=== PATIENT | male | born 1980 | race Two or more races ===

== ENCOUNTER 2017-08-30 22:53 | Inpatient (IN) | payer OTHER ==
[~2017-08-30] VITALS: Ht 175.3 cm; Wt 76.0 kg
[2017-08-30 23:11] VITALS: Ht 175.3 cm; Wt 76.0 kg
[2017-08-31 01:26] VITALS: TEMP 98.6
--- NOTE | 2017-08-31 01:48 | RADRPT ---
PROCEDURE: CHEST - 1 VIEW CLINICAL INDICATION: 37-year-old male with chest pain. TECHNIQUE: A single frontal AP upright portable view of the chest was performed. The images were reviewed on a PACS workstation. COMPARISON: None. FINDINGS: The cardiomediastinal silhouette has a normal appearance. There is no evidence for an infiltrate. There is no evidence for congestive heart failure. There is no evidence for pneumothorax. The osseou s structures are intact. IMPRESSION: No evidence for active cardiopulmonary disease. .Lyle Dacosta MD, MD Date Time Electronically viewed and signed by .Lyle Dacosta MD, on 08/31/2017 01:47 .M/
[2017-08-31 02:29] LABS: BASOPHIL # 0.1 10^3/ul (0.0-0.1); BASOPHILS % 0.6 % (0.0-2.0); EOSINOPHILS # 0.1 10^3/ul (0.0-0.5); EOSINOPHILS % 1.3 % (0.0-7.0); HEMOGLOBIN 13.8 g/dl (14.0-18.0); LYMPHOCYTES % 29.8 % (15.0-51.0); MEAN CORPUSCULAR HEMOGLOBIN 28.3 pg (29.0-33.0); MEAN CORPUSCULAR HGB CONC 33.7 g/dl (32.0-37.0); MEAN CORPUSCULAR VOLUME 84.2 fl (82.0-101.0); MEAN PLATELET VOLUME 10.5 fl (7.4-10.4); NEUTROPHIL # 5.8 10^3/ul (1.6-7.5); NEUTROPHILS % 57.8 % (39.0-77.0); PLATELET COUNT 360 10^3/UL (140-415); RED BLOOD COUNT 4.87 10^6/ul (4.70-6.10); RED CELL DISTRIBUTION WIDTH 12.3 % (11.5-14.5)
[2017-08-31 02:39] LABS: ALBUMIN 4.3 g/dl (3.3-4.9); ALBUMIN/GLOBULIN RATIO 1.53; BILIRUBIN,INDIRECT 0.4 mg/dl (0-1.1); BILIRUBIN,TOTAL 0.4 mg/dl (0.2-1.3); CREATINE KINASE 262 IU/L (23-200); CREATININE 1.04 mg/dl (0.61-1.24); POTASSIUM 3.9 mmol/L (3.5-5.1); TOTAL PROTEIN 7.1 g/dl (6.1-8.1)
[2017-08-31 02:54] LABS: CK-MB 4.13 ng/ml (0.0-2.4); TROPONIN-I < 0.012 ng/ml (0.00-0.12)
--- NOTE | 2017-08-31 04:48 | ERD ---
ER Documentation Chief Complaint Chief Complaint CP for 2 weeks, last night L arm and shoulder hurting HPI This is a 37-year-old male sent chest pain on and off for the past 2 weeks. In the past few hours he developed left arm and left shoulder pain radiating from his chest. Pain is mild to moderate intensity. No fevers no chills. Also complaining of palpitations. No other current issues. ROS All systems reviewed and are negative except as per history of present illness. Allergies Allergies: Coded Allergies: No Known Allergy (Unverified , 08/30/17) PMhx/Soc Medical and Surgical Hx: pt denies Medical Hx, pt denies Surgical Hx History of Surgery: No Anesthesia Reaction: No Hx Neurological Disorder: No Hx Respiratory Disorders: No Hx Cardiac Disorders: No Hx Psychiatric Problems: No Hx Miscellaneous Medical Probl: No Hx Alcohol Use: No Hx Substance Use: No Hx Tobacco Use: No Smoking Status: Never smoker Physical Exam Vitals Vital Signs Date Time Temp Pulse Resp B/P Pulse Ox O2 Delivery O2 Flow Rate FiO2 08/31/17 01:26 98.6 65 12 137/89 98 Room Air 08/30/17 23:11 97.5 71 16 132/84 99 Physical Exam Const: [] Head: Atraumatic Eyes: Normal Conjunctiva ENT: Normal External Ears, Nose and Mouth. Neck: Full range of motion..~ No meningismus. Resp: Clear to auscultation bilaterally Cardio: Regular rate and rhythm, no murmurs Abd: Soft, non tender, non distended. Normal bowel sounds Skin: No petechiae or rashes Back: No midline or flank tenderness Ext: No cyanosis, or edema Neur: Awake and alert Psych: Normal Mood and Affect Result Diagram: 08/31/177 08/31/17 0127 Results 24 hrs Laboratory Tests Test 08/31/17 01:27 White Blood Count 10.010^3/ul Red Blood Count 4.8710^6/ul Hemoglobin 13.8g/dl Hematocrit 41.0% Mean Corpuscular Volume 84.2fl Mean Corpuscular Hemoglobin 28.3pg Mean Corpuscular Hemoglobin Concent 33.7g/dl Red Cell Distribution Width 12.3% Platelet Count 84348^3/UL Mean Platelet Volume 10.5fl Neutrophils % 57.8% Lymphocytes % 29.8% Monocytes % 10.0% Eosinophils % 1.3% Basophils % 0.6% Nucleated Red Blood Cells % 0.0/100WBC Neutrophils # 5.810^3/ul Lymphocytes # 3.010^3/ul Monocytes # 1.010^3/ul Eosinophils # 0.110^3/ul Basophils # 0.110^3/ul Nucleated Red Blood Cells # 0.010^3/ul Sodium Level 142mmol/L Potassium Level 3.9mmol/L Chloride Level 102mmol/L Carbon Dioxide Level 30mmol/L Anion Gap 14 Blood Urea Nitrogen 16mg/dl Creatinine 1.04mg/dl Glucose Level 87mg/dl Calcium Level 10.0mg/dl Total Bilirubin 0.4mg/dl Direct Bilirubin 0.00mg/dl Indirect Bilirubin 0.4mg/dl Aspartate Amino Transf (AST/SGOT) 29IU/L Alanine Aminotransferase (ALT/SGPT) 45IU/L Alkaline Phosphatase 54IU/L Creatine Kinase 262IU/L Creatine Kinase Index 1.6 Creatinine Kinase MB (Mass) 4.13ng/ml Troponin I < 0.012ng/ml B-Type Natriuretic Peptide 44PG/ML Total Protein 7.1g/dl Albumin 4.3g/dl Globulin 2.80g/dl Albumin/Globulin Ratio 1.53 Procedures/MDM EKG: Rate/Rhythm: [Normal Sinus Rhythm] QRS, ST, T-waves: [No changes consistent w/ acute ischemia] Impression: [No evidence of ischemia or arrhythmia] Chest X-ray 1V Interpreted by me: Soft Tissue: No acute abnormalities Bones: No acute abnormalities Mediastinum/Cardiac Silhouette/Lungs: [No acute abnormalities] Patient's symptoms are concerning for cardiac cause will require inpatient workup and continuous monitoring. Further w/u for ischemia, arrhythmia, PE or dissection will be deferred to the inpatient team. Accepting Care Team: Current data and ongoing care discussed. Time: 5 AM Primary Provider: Dr. Peters Consulting: [XOXOXO] Outstanding Data: none Departure Diagnosis: Primary Impression: Chest pain Chest pain type: chest pain due to myocardial ischemia Ischemic chest pain type: unspecified angina pectoris type Qualified Code: I20.9 - Chest pain due to myocardial ischemia, unspecified ischemic chest pain type Condition: Serious LAZARO HOLGUINAnali Aug 31, 2017 04:48
[2017-08-31] MEDS ORDERED: BISACODYL (EC) 5 MG TAB PO PRN (07:00)
[2017-08-31] MEDS ORDERED: ACETAMINOPHEN 325 MG TAB PO PRN (07:00)
[2017-08-31] MEDS ORDERED: NACL 0.9% 3 ML SYG IV SCH (07:00)
[2017-08-31] MEDS ORDERED: ONDANSETRON 4 MG INJ IV PRN (07:00)
[2017-08-31] MEDS ORDERED: NITROGLYCERIN (SL) 0.4 MG TAB SL PRN (07:00)
[2017-08-31] MEDS ORDERED: SOD CHLORIDE 0.9% 1,000 ML IV SCH (07:00)
[2017-08-31] MEDS ORDERED: DOCUSATE SODIUM 100 MG CAP PO PRN (07:00)
[2017-08-31 08:00] VITALS: BP 138/82; PULSE 73; RESP 18
[2017-08-31 08:19] LABS: BARBITURATES Negative (NEGATIVE); BENZODIAZEPINES Negative (NEGATIVE); CANNABINOIDS Negative (NEGATIVE); COCAINE Negative (NEGATIVE); OPIATES Negative (NEGATIVE)
[2017-08-31 08:24] LABS: BASOPHILS % 0.5 % (0.0-2.0); EOSINOPHILS # 0.1 10^3/ul (0.0-0.5); EOSINOPHILS % 1.5 % (0.0-7.0); HEMATOCRIT 42.1 % (42.0-52.0); HEMOGLOBIN 14.1 g/dl (14.0-18.0); LYMPHOCYTES # 1.9 10^3/ul (0.8-2.9); LYMPHOCYTES % 24.3 % (15.0-51.0); MEAN CORPUSCULAR HEMOGLOBIN 28.3 pg (29.0-33.0); MEAN CORPUSCULAR HGB CONC 33.5 g/dl (32.0-37.0); MEAN CORPUSCULAR VOLUME 84.5 fl (82.0-101.0); MONOCYTE # 0.8 10^3/ul (0.3-0.9); MONOCYTES % 9.9 % (0.0-11.0); NEUTROPHILS % 63.3 % (39.0-77.0); PLATELET COUNT 309 10^3/UL (140-415); RED BLOOD COUNT 4.98 10^6/ul (4.70-6.10); RED CELL DISTRIBUTION WIDTH 12.6 % (11.5-14.5)
[2017-08-31 08:46] LABS: ALBUMIN/GLOBULIN RATIO 1.42; BILIRUBIN,INDIRECT 0.8 mg/dl (0-1.1); BILIRUBIN,TOTAL 0.8 mg/dl (0.2-1.3); CALCIUM 9.3 mg/dl (8.4-10.2); CHOL/HDL RATIO 3.9 RATIO; CREATININE 1.01 mg/dl (0.61-1.24); TOTAL PROTEIN 6.8 g/dl (6.1-8.1)
[2017-08-31 09:15] LABS: THYROID STIMULATING HORMONE 3.53 MIU/L (0.465-4.680)
--- NOTE | 2017-08-31 11:51 | HP ---
Date/Time of Note Date/Time of Note DATE: 08/31/17 TIME: 11:51 Assessment/Plan VTE Prophylaxis VTE Prophylaxis Intervention: ambulation Lines/Catheters IV [facility]from [facility] Saline Lock Assessment/Plan Chief Complaint/Hosp Course 1. Chest pain with associated palpitations. -Serial troponins. -2D echocardiogram to evaluate the left ventricular ejection fraction and to evaluate for any wall motion abnormalities. -Obtain d-dimer to evaluate for any underlying thromboembolic process. -Cardiology consult. Plan: The patient will be admitted to inpatient telemetry floor. The patient will be started on a regular diet. The patient will be started on DVT prophylaxis. The patient will remain a full code. Activities will be as tolerated. The rest of the patient's management will be based on the clinical course, inputs from consultants, and the results of diagnostic studies. Based on the patient's clinical presentation, he most probably requires at least 1 midnight's stay for further management and evaluation of his clinical presentation. The case and management of this patient was fully discussed with Dr. Milan. Problems: HPI/ROS Admit Date/Time Admit Date/Time Aug 31, 2017 at 04:49 Hx of Present Illness Reason for admission: Chest pain, palpitations. Consultants 1. Haja Rodarte DO, Cardiology. This is a 37-year-old Spanish gentleman with no significant past medical history who came to the emergency room with chief complaint of chest pain and associated palpitations that has been going on for the past few days. The patient recently has been to [place] for a wrestling competition and he flew back from [place]. The patient verbalized that he had a similar episode when he felt palpitations during the sporting event in [place]. The patient verbalized that at that time, he had a heart rate of 150s. After he flew back from [place] he had a few episodes with associated palpitations and chest pain. His last episode was on 08/30/2017 and he felt chest pain with palpitations with radiation of pain to the left arm. The pain and palpitations woke him up from the middle of sleep and later he was unable to sleep. He denied any associated nausea, vomiting, or diaphoresis. The patient denied any dyspnea. He denied any fevers or chills. He denied any calf pain. In the emergency room, the patient's chest x-ray was negative for any acute cardiopulmonary findings. The patient's initial troponins were negative. The patient was noticed to have minimal elevation of creatinine kinase. ROS Constitutional: no complaints Eyes: no complaints ENT: no complaints Respiratory: no complaints Cardiovascular: chest pain, palpitations Gastrointestinal: no complaints Genitourinary: no complaints Musculoskeletal: no complaints Skin: no complaints Neurologic: no complaints Endocrine: no complaints Lymphatic: no complaints Psychological: no complaints Immunologic: no complaints PMH/Family/Social Past Medical History Medical History: no pertinent history Past Surgical History Past Surgical Hx: other (Tonsillectomy) Family History Significant Family History: no pertinent family hx Social History 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 The patient is single and lives with his mom. Alcohol Use: none Smoking Status: Never smoker Drug Use: none Exam/Review of Systems Vital Signs Vitals Vital Signs Date Time Temp Pulse Resp B/P Pulse Ox O2 Delivery O2 Flow Rate FiO2 08/31/17 08:00 98.4 73 18 138/82 100 Room Air Exam Exam CXR IMPRESSION: No evidence for active cardiopulmonary disease. 12-Lead EKG Normal sinus rhythm. Labs Result Diagram: 08/31/1736 08/31/17735 Medications Medications Current Medications Sodium Chloride (NS) 1,000 ml @ 75 mls/hr [id number] IV Last administered on t 09:06; Admin Dose 75 MLS/HR; Start 08/31/17 at 07:00 Ondansetron HCl (Zofran Inj) 4 mg Q6H PRN IV NAUSEA AND/OR VOMITING; Start at 07:00 Nitroglycerin (Nitroglycerin (Sl Tab) 0.4 Mg) 1 tab Q5M PRN SL CHEST PAIN; Start 08/31/17 at 07:00 Acetaminophen (Tylenol Tab) 650 mg Q6H PRN PO PAIN LEVEL 1-3 OR FEVER; Start 08/31/17 at 07:00 Docusate Sodium (Colace) 100 mg Q12H PRN PO CONSTIPATION; Start 08/31/17 at 07 :00 Bisacodyl (Dulcolax) 5 mg DAILY PRN PO CONSTIPATION; Start 08/31/17 at 07:00 KHADRA GUTHRIE NP Aug 31, 2017 11:51
[2017-08-31 12:00] VITALS: BP 126/71; PULSE 65; RESP 18
[2017-08-31 12:53] LABS: D-DIMER 233.43 ng/ml (<460)
[2017-08-31 13:33] LABS: CREATINE KINASE 308 IU/L (23-200)
[2017-08-31 13:52] LABS: CK-MB 6.23 ng/ml (0.0-2.4); TROPONIN-I < 0.012 ng/ml (0.00-0.12)
--- NOTE | 2017-08-31 14:02 | RADRPT ---
Echocardiogram Report Patient Name: CRISELDA JEAN Gender: Male Date: 1980 Study Date: 31-Aug-2017 Information Technology Security Manager: Marisa Carvajal [facility] Location: [id number] Ref. Physician: EDWIN HORAN Quality: Adequate Procedures: Transthoracic echocardiogram with complete 2D, M-Mode, and doppler examination. Indications: Chest Pain. 2D/M Mode Doppler Measurement Value Normal Ranges Measurement Value Normal Ranges LVIDd 2D 5.3 3.5 - 5.6 cm AV Peak [place]andon 1.4 m/sec LVIDs 2D 3.3 2.1 - 4.1 cm AV Peak PG 7.5 mmHg LVPWd 2D 0.7 0.6 - 1.1 cm LVOT Peak Landon 1.2 m/sec IVSd 2D 0.7 0.6 - 1.1 cm LVOT Peak PG 5.6 mmHg AoR Diam 2D 2.5 2.0 - 3.7 cm MV E Peak Landon 1.1 m/sec EDV 2D 136.8 cm3 MV A Peak Landon 0.4 m/sec ESV 2D 35.0 cm3 MV E/A 3.0 LA Dimen 2D 3.0 2.3 - 4.0 cm MV Decel Time 224 msec MV Decel [place] 5 MV E/A 3.0 TR Peak Landon 2.2 m/sec TR Peak PG 19.6 mmHg RVSP 23.0 mmHg Findings Left Ventricle: Normal left ventricular systolic function. Normal left ventricular cavity size. Normal left ventricular wall thickness. Ejection fraction is visually estimated at 55 %. Tissue Doppler/Mitral Doppler indices are within normal limits. Right Ventricle: Normal right ventricular size. Normal right ventricular systolic function. Left Atrium: The left atrium is normal in size. Right Atrium: The right atrium is normal in size. Mitral Valve: Normal appearance and function of the mitral valve with trace physiologic regurgitation. Aortic Valve: Normal appearance of the aortic valve. No significant aortic stenosis or insufficiency. Tricuspid Valve: Normal appearance of the tricuspid valve. Estimated peak PA systolic pressure 23 mmHg. There is trace tricuspid regurgitation. Pulmonic Valve: Normal pulmonic valve appearance. Pericardium: Normal pericardium with no significant pericardial effusion. Aorta: Normal aortic root. IVC: Normal size and normal respiratory collapse consistent with normal right atrial pressure. Conclusions Normal left ventricular systolic function. Normal left ventricular cavity size. Normal left ventricular wall thickness. Ejection fraction is visually estimated at 55 %. Tissue Doppler/Mitral Doppler indices are within normal limits. Normal right ventricular size. Normal right ventricular systolic function. The left atrium is normal in size. The right atrium is normal in size. No significant valvular stenosis or regurgitation seen. Normal pericardium with no significant pericardial effusion. Electronically Signed By: Haja Rodarte 31-Aug-2017 14:01:15 0800 Patient Name: CRISELDA JEAN Study Date: 31-Aug-2017 [id number]
--- NOTE | 2017-08-31 14:42 | PDOCDIS ---
Discharge Instructions DIAGNOSIS Discharge Diagnosis 1. Atypical chest pain. CONDITION Patient Condition: Stable HOME CARE INSTRUCTIONS: Diet Instructions: Regular FOLLOW UP/APPOINTMENTS Follow-up Plan Waylon Montemayor MD Specialty: Internal Medicine Office Address: [address] [place], [place] [id number] Office OTHER ORDERS: Other Orders: 1. Take a regular diet. 2. Resume activities as tolerated. 3. Follow-up with your primary care physician within the next 2 weeks to check your thyroid panel. If you do not have a primary care physician, please call Dr. Waylon Montemayor's office. 4. Please call 911 or go to the nearest emergency room if you have any chest pain. KHADRA GUTHRIE NP Aug 31, 2017 14:42
--- NOTE | 2017-08-31 16:02 | DS ---
Date/Time of Note Date/Time of Note DATE: 08/31/17 TIME: 16:00 Discharge Summary Admission/Discharge Info Admit Date/Time Aug 31, 2017 at 04:49 Discharge Date/Time Discharge Diagnosis 1. Atypical chest pain. 2. Mild rhabdomyolysis. Patient Condition: Stable Consults 1. Haja Rodarte DO, Cardiology. Procedures 2D Echocardiogram Conclusions Normal left ventricular systolic function. Normal left ventricular cavity size. Normal left ventricular wall thickness. Ejection fraction is visually estimated at 55 %. Tissue Doppler/Mitral Doppler indices are within normal limits. Normal right ventricular size. Normal right ventricular systolic function. The left atrium is normal in size. The right atrium is normal in size. No significant valvular stenosis or regurgitation seen. Normal pericardium with no significant pericardial effusion. Hx of Present Illness Reason for admission: Chest pain, palpitations. Consultants 1. Haja Rodarte DO, Cardiology. This is a 37-year-old Salvadorean gentleman with no significant past medical history who came to the emergency room with chief complaint of chest pain and associated palpitations that has been going on for the past few days. The patient recently has been to [place] for a wrestling competition and he flew back from [place]. The patient verbalized that he had a similar episode when he felt palpitations during the sporting event in [place]. The patient verbalized that at that time, he had a heart rate of 150s. After he flew back from [place] he had a few episodes with associated palpitations and chest pain. His last episode was on 08/30/2017 and he felt chest pain with palpitations with radiation of pain to the left arm. The pain and palpitations woke him up from the middle of sleep and later he was unable to sleep. He denied any associated nausea, vomiting, or diaphoresis. The patient denied any dyspnea. He denied any fevers or chills. He denied any calf pain. In the emergency room, the patient's chest x-ray was negative for any acute cardiopulmonary findings. The patient's initial troponins were negative. Patient was noticed to have minimal elevation of creatinine kinase. Hospital Course The patient was admitted to inpatient telemetry floor. A cardiology consult was obtained. The patient's serial troponins remained negative. The patient's 2D echocardiogram showed preserved left ventricular ejection fraction. The patient had some evidence of minimal rhabdomyolysis. However, the patient's renal function remained stable. The patient was given some IV fluids during the hospital course. The patient's fasting lipid panel was satisfactory. His hemoglobin A1c was within normal limits. The patient's TSH was within normal limits. The patient was seen and evaluated by cardiology and the patient was cleared to be discharged home. Discharge Disposition/Plan 1. Take a regular diet. 2. Resume activities as tolerated. 3. Follow-up with your primary care physician within the next 2 weeks to check your thyroid panel. If you do not have a primary care physician, please call Dr. Waylon Montemayor's office. 4. Please call 911 or go to the nearest emergency room if you have any chest pain. At this time I would like to thank Dr. Rodarte for seeing the patient and providing clinical recommendations. The case and management of this patient was fully discussed with Dr. Milan. Follow-up Plan Waylon Montemayor MD Specialty: Internal Medicine Office Address: [address] [place] [address] Office Primary Care Provider Care Physician No Primary Time spent on discharge: > 30 minutes Pending Labs Laboratory Tests Test 08/31/17 01:27 08/31/17 01:29 08/31/17 01:30 08/31/17 07:36 White Blood Count 10.010^3/ul (4.8-10.8) 8.010^3/ul (4.8-10.8) Red Blood Count 4.8710^6/ul (4.70-6.10) 4.9810^6/ul (4.70-6.10) Hemoglobin 13.8g/dl (14.0-18.0) 14.1g/dl (14.0-18.0) Hematocrit 41.0% (42.0-52.0) 42.1% (42.0-52.0) Mean Corpuscular Volume 84.2fl (82.0-101.0) 84.5fl (82.0-101.0) Mean Corpuscular Hemoglobin 28.3pg (29.0-33.0) 28.3pg (29.0-33.0) Mean Corpuscular Hemoglobin Concent 33.7g/dl (32.0-37.0) 33.5g/dl (32.0-37.0) Red Cell Distribution Width 12.3% (11.5-14.5) 12.6% (11.5-14.5) Platelet Count 49652^3/UL (140-415) 76812^3/UL (140-415) Mean Platelet Volume 10.5fl (7.4-10.4) 10.0fl (7.4-10.4) Neutrophils % 57.8% (39.0-77.0) 63.3% (39.0-77.0) Lymphocytes % 29.8% (15.0-51.0) 24.3% (15.0-51.0) Monocytes % 10.0% (0.0-11.0) 9.9% (0.0-11.0) Eosinophils % 1.3% (0.0-7.0) 1.5% (0.0-7.0) Basophils % 0.6% (0.0-2.0) 0.5% (0.0-2.0) Nucleated Red Blood Cells % 0.0/100WBC (0.0-0.0) 0.0/100WBC (0.0-0.0) Neutrophils # 5.810^3/ul (1.6-7.5) 5.010^3/ul (1.6-7.5) Lymphocytes # 3.010^3/ul (0.8-2.9) 1.910^3/ul (0.8-2.9) Monocytes # 1.010^3/ul (0.3-0.9) 0.810^3/ul (0.3-0.9) Eosinophils # 0.110^3/ul (0.0-0.5) 0.110^3/ul (0.0-0.5) Basophils # 0.110^3/ul (0.0-0.1) 0.010^3/ul (0.0-0.1) Nucleated Red Blood Cells # 0.010^3/ul (0.0-0.0) 0.010^3/ul (0.0-0.0) Sodium Level 142mmol/L (135-144) 140mmol/L (135-144) Potassium Level 3.9mmol/L (3.5-5.1) 4.0mmol/L (3.5-5.1) Chloride Level 102mmol/L (97-110) 103mmol/L (97-110) Carbon Dioxide Level 30mmol/L (21-31) 30mmol/L (21-31) Anion Gap 14 (8-16) 11 (8-16) Blood Urea Nitrogen 16mg/dl (7-20) 16mg/dl (7-20) Creatinine 1.04mg/dl (0.61-1.24) 1.01mg/dl (0.61-1.24) Glucose Level 87mg/dl (70-220) 92mg/dl (70-220) Calcium Level 10.0mg/dl (8.4-10.2) 9.3mg/dl (8.4-10.2) Total Bilirubin 0.4mg/dl (0.2-1.3) 0.8mg/dl (0.2-1.3) Direct Bilirubin 0.00mg/dl (0.00-0.20) 0.00mg/dl (0.00-0.20) Indirect Bilirubin 0.4mg/dl (0-1.1) 0.8mg/dl (0-1.1) Aspartate Amino Transf (AST/SGOT) 29IU/L (15-46) 29IU/L (15-46) Alanine Aminotransferase (ALT/SGPT) 45IU/L (13-69) 39IU/L (13-69) Alkaline Phosphatase 54IU/L (42-121) 48IU/L (42-121) Creatine Kinase 262IU/L (23-200) Creatine Kinase Index 1.6 Creatinine Kinase MB (Mass) 4.13ng/ml (0.0-2.4) Troponin I < 0.012ng/ml (0.00-0.12) B-Type Natriuretic Peptide 44PG/ML (0-125) Total Protein 7.1g/dl (6.1-8.1) 6.8g/dl (6.1-8.1) Albumin 4.3g/dl (3.3-4.9) 4.0g/dl (3.3-4.9) Globulin 2.80g/dl (1.3-3.2) 2.80g/dl (1.3-3.2) Albumin/Globulin Ratio 1.53 1.42 Urine Opiates Screen Negative (NEGATIVE) Urine Barbiturates Negative (NEGATIVE) Urine Amphetamines Screen Negative (NEGATIVE) Urine Benzodiazepines Screen Negative (NEGATIVE) Urine Cocaine Screen Negative (NEGATIVE) Urine Cannabinoids Negative (NEGATIVE) D-Dimer 233.43ng/ml (<460) D-Dimer Comment Hemoglobin A1c 5.0% (0-5.9) Triglycerides Level 64mg/dl (0-149) Cholesterol Level 196mg/dl (100-200) LDL Cholesterol, Calculated 133mg/dl HDL Cholesterol 50mg/dl (28-63) Cholesterol/HDL Ratio 3.9RATIO Thyroid Stimulating Hormone (TSH) 3.530MIU/L (0.465-4.680) Test 08/31/17 13:04 Creatine Kinase 308IU/L (23-200) Creatine Kinase Index 2.0 Creatinine Kinase MB (Mass) 6.23ng/ml (0.0-2.4) Troponin I < 0.012ng/ml (0.00-0.12) KHADRA GUTHRIE NP Aug 31, 2017 16:02
--- NOTE | 2017-08-31 17:25 | CONS ---
Date/Time of Note Date/Time of Note DATE: 08/31/17 TIME: 17:21 Assessment/Plan Assessment/Plan Additional Assessment/Plan Palpitations Preserved ejection fraction -Patient with symptoms of palpitations which have been intermittent and more so at rest and associated with anxiety. Echocardiogram with preserved ejection fraction, serial troponins have been negative and TSH within normal limits. 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 No arrhythmias seen on the telemetry floor. Patient feels better now and is asked to be discharged home. Would recommend close outpatient follow-up. Consultation Date/Type/Reason Admit Date/Time Aug 31, 2017 at 04:49 Type of Consultation: cv Reason for Consultation Palpitations Hx of Present Illness This is a 37-year-old male with no significant past medical history who presents with intermittent palpitations over the past week. 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 There has been issues of increased stress and training for the match. With activity, he feels better with no symptoms of palpitations or chest discomfort. He has noticed that at times when he gets anxious, he has palpitations at times chest discomfort which he thinks is secondary to the fast heartbeat. Denies any dizziness or lightheadedness. His anxiety was increased yesterday and he felt he had more episodes yesterday. Also yesterday evening, he did wake up from sleep with palpitations after a bad dream. Currently denies any palpitations, chest pain, shortness of breath or dizziness 12 point review of systems was performed with all pertinent positives and negatives mentioned above and all else is negative Past Medical History Medical History: no pertinent history Past Surgical History Past Surgical Hx: other (Tonsillectomy) Family History Significant Family History: no pertinent family hx Social History Alcohol Use: none Smoking Status: Never smoker Drug Use: none Other Social History He does take multivitamins and protein shakes, occasional energy drinks once a week, denies hormone use or any drugs Exam/Review of Systems Vital Signs Vitals Vital Signs Date Time Temp Pulse Resp B/P Pulse Ox O2 Delivery O2 Flow Rate FiO2 08/31/17 12:00 97.9 18 126/71 100 Room Air 08/31/17 12:00 65 Exam Constitutional: alert, oriented, well developed Head: normocephalic Neck: supple Respiratory: clear to auscultation, normal air movement Cardiovascular: other (s1s2), regular rate and rhythm Gastrointestinal: bowel sounds, non-tender, soft Extremities: other (no edema) Results Result Diagram: 08/31/17 0736 08/31/17 0736 Results 24 hrs Laboratory Tests Test 08/31/17 01:27 08/31/17 01:29 08/31/17 01:30 08/31/17 07:36 White Blood Count 10.0 8.0 Red Blood Count 4.87 4.98 Hemoglobin 13.8 L 14.1 Hematocrit 41.0 L 42.1 Mean Corpuscular Volume 84.2 84.5 Mean Corpuscular Hemoglobin 28.3 L 28.3 L Mean Corpuscular Hemoglobin Concent 33.7 33.5 Red Cell Distribution Width 12.3 12.6 Platelet Count 360 309 Mean Platelet Volume 10.5 H 10.0 Neutrophils % 57.8 63.3 Lymphocytes % 29.8 24.3 Monocytes % 10.0 9.9 Eosinophils % 1.3 1.5 Basophils % 0.6 0.5 Nucleated Red Blood Cells % 0.0 0.0 Neutrophils # 5.8 5.0 Lymphocytes # 3.0 H 1.9 Monocytes # 1.0 H 0.8 Eosinophils # 0.1 0.1 Basophils # 0.1 0.0 Nucleated Red Blood Cells # 0.0 0.0 Sodium Level 142 140 Potassium Level 3.9 4.0 Chloride Level 102 103 Carbon Dioxide Level 30 30 Anion Gap 14 11 Blood Urea Nitrogen 16 16 Creatinine 1.04 1.01 Glucose Level 87 92 Calcium Level 10.0 9.3 Total Bilirubin 0.4 0.8 Direct Bilirubin 0.00 0.00 Indirect Bilirubin 0.4 0.8 Aspartate Amino Transf (AST/SGOT) 29 29 Alanine Aminotransferase (ALT/SGPT) 45 39 Alkaline Phosphatase 54 48 Creatine Kinase 262 H Creatine Kinase Index 1.6 Creatinine Kinase MB (Mass) 4.13 H Troponin I < 0.012 B-Type Natriuretic Peptide 44 Total Protein 7.1 6.8 Albumin 4.3 4.0 Globulin 2.80 2.80 Albumin/Globulin Ratio 1.53 1.42 Urine Opiates Screen Negative Urine Barbiturates Negative Urine Amphetamines Screen Negative Urine Benzodiazepines Screen Negative Urine Cocaine Screen Negative Urine Cannabinoids Negative D-Dimer 233.43 D-Dimer Comment Hemoglobin A1c 5.0 Triglycerides Level 64 Cholesterol Level 196 LDL Cholesterol, Calculated 133 HDL Cholesterol 50 Cholesterol/HDL Ratio 3.9 Thyroid Stimulating Hormone (TSH) 3.530 Test 08/31/17 13:04 Creatine Kinase 308 H Creatine Kinase Index 2.0 Creatinine Kinase MB (Mass) 6.23 H Troponin I < 0.012 Medications Medications Current Medications Ondansetron HCl (Zofran Inj) 4 mg Q6H PRN IV NAUSEA AND/OR VOMITING; Start at 07:00 Nitroglycerin (Nitroglycerin (Sl Tab) 0.4 Mg) 1 tab Q5M PRN SL CHEST PAIN; Start 08/31/17 at 07:00 Acetaminophen (Tylenol Tab) 650 mg Q6H PRN PO PAIN LEVEL 1-3 OR FEVER; Start 08/31/17 at 07:00 Docusate Sodium (Colace) 100 mg Q12H PRN PO CONSTIPATION; Start 08/31/17 at 07 :00 Bisacodyl (Dulcolax) 5 mg DAILY PRN PO CONSTIPATION; Start 08/31/17 at 07:00 Procedures Procedures ECG demonstrates sinus rhythm, normal QRS duration, no significant ischemic ST abnormalities Haja Rodarte DO Aug 31, 2017 17:25
--- NOTE | 2017-09-01 15:14 | RADRPT ---
Vent Rate: 65 bpm RR Interval: 0 msec [place] Interval: 142 msec QRS Duration: 96 msec QT Interval: 394 msec QTC Interval: 409 msec P-R-T [place]: 70 - 67 - 47 degrees Normal sinus rhythm with sinus arrhythmia Normal ECG Electronically Signed By: Haja Rodarte [id number]
== END 2017-08-31 15:20 | disposition home or self-care (01) | DRG 313 ==
LOC: E/R 22:53 → MS3 08-31 04:49
PROVIDERS: ADMIT Family Medicine; ATTEND Family Medicine
DX: R07.89 Other chest pain (principal); M62.82 Rhabdomyolysis
CPT/HCPCS: 36415; 71010; 80053; 80061; 80307; 82550; 82553; 83036; 83880; 84443; 84484; 85025; 85378; 93005; 93306; J7030